=== PATIENT | female | born 1945 | race African-American/Black ===

== ENCOUNTER 2020-03-29 10:46 | Outpatient (CLI) | payer MEDICARE, OTHER, MEDICAID, SELFPAY ==
[2020-03-29 11:59] LABS: Basophils Absolute Auto 0.1 K/mm3 (0.0-0.1); Basophils Percent Auto 0.6 % (0.2-1.2); Eosinophils Absolute Auto 0.3 K/mm3 (0-0.3); Eosinophils Percent Auto 2.5 % (0-4.4); Hematocrit 37.1 % (37.0-47.0); Hemoglobin 12.3 g/dL (12.0-15.0); Immature Granulocyte Absolute 0.02 K/mm3 (0.00-0.031); Immature Granulocyte Percent A 0.2 % (0-0.5); Lymphocytes Absolute Auto 2.85 K/mm3 (0.9-3.2); Lymphocytes Percent Auto 27.5 % (18.3-44.2); Mean Corpuscular HGB Conc 33.2 g/dl (32-36); Mean Corpuscular Hemoglobin 29.9 pg (26-34); Mean Platelet Volume 11.4 fl (7.4-10.4); Monocytes Absolute Auto 0.6 K/mm3 (0.1-0.6); Monocytes Percent Auto 6.2 % (2.6-8.5); Neutrophils Absolute Auto 6.5 K/mm3 (1.3-6.7); Platelet Count Result 190 k/mm3 (150-375); Red Blood Count 4.12 M/mm3 (4.2-5.4); Red Cell Distribution Width 14.6 % (11.5-14.5); White Blood Count 10.4 K/mm3 (4.5-10.0)
[2020-03-29 12:11] LABS: Anion Gap 14.2 mmol/L (7-16); Blood Urea Nitrogen 32 mg/dL (7-17); Calcium 9.4 mg/dL (8.4-10.2); Carbon Dioxide 23 mmol/L (22-30); Chloride 103 mmol/L (98-107); Estimated Glomerular Filt Rate 53; Glucose 120 mg/dL (65-105); Potassium 4.2 mmol/L (3.4-5.0); Sodium 136 mmol/L (137-145)
[2020-03-29 12:47] LABS: Hemoglobin A1C 5.9 % (<5.7)
== END 2020-03-29 10:47 | disposition home or self-care (01) ==
PROVIDERS: PCP Internal Medicine
DX: I49.5 Sick sinus syndrome (principal); Z95.0 Presence of cardiac pacemaker; E78.00 Pure hypercholesterolemia, unspecified; I10 Essential (primary) hypertension; R94.31 Abnormal electrocardiogram [ECG] [EKG]; E11.9 Type 2 diabetes mellitus without complications
CPT/HCPCS: 36415; 80048; 83036; 84443; 85025

== ENCOUNTER 2020-04-20 08:10 | Outpatient (CLI) | payer MEDICARE, OTHER, MEDICAID, SELFPAY ==
[2020-04-20 09:15] LABS: Vitamin D 25 Hydroxy 38.2 ng/mL
== END 2020-04-20 08:11 | disposition home or self-care (01) ==
PROVIDERS: PCP Internal Medicine; Visit Provider Internal Medicine
DX: E55.9 Vitamin D deficiency, unspecified (principal)
CPT/HCPCS: 36415; 82306

== ENCOUNTER → 2020-05-21 10:42 | Outpatient (CLI) | payer MEDICARE, OTHER, MEDICAID, SELFPAY ==
--- NOTE | ~2020-05-21 | XR_ITS ---
XR knee RT 2V 05/21/2020 11:05 Indication: Right knee pain Procedure: 2 views right knee Comparison: No prior studies for comparison. Findings: There is mild osteoarthritis of the right knee. No fracture or traumatic malalignment. No s ignificant joint effusion. No radiopaque foreign bodies. Impression: 1: Mild osteoarthritis of the right knee. Reviewed, dictated and finalized at location B. Impression: 1: Mild osteoarthritis of the right knee.
== END ==
PROVIDERS: PCP Internal Medicine; Visit Provider Nurse Practitioner Family
DX: M25.561 Pain in right knee (principal); M17.11 Unilateral primary osteoarthritis, right knee
CPT/HCPCS: 73560

== ENCOUNTER → 2020-08-09 10:31 | Outpatient (CLI) | payer MEDICARE, OTHER, MEDICAID, SELFPAY ==
--- NOTE | ~2020-08-09 | XR_ITS ---
XR hand RT 2V 08/09/2020 10:50 INDICATION: Right hand pain PROCEDURE: 2 views right hand COMPARISON: No prior studies for comparison. FINDINGS: Fracture, dislocation or subluxation is not identified. Mild polyarticular osteoarthritis. No fracture or traumatic malalignment. No significant soft tissue abnormality. No foreign bodies. 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 Reviewed, dictated and finalized at location B. MA PROCESSOR
== END ==
PROVIDERS: Visit Provider Nurse Practitioner Family
DX: M19.041 Primary osteoarthritis, right hand (principal); M19.031 Primary osteoarthritis, right wrist
CPT/HCPCS: 73120

== ENCOUNTER → 2020-11-20 08:02 | Outpatient (CLI) | payer MEDICARE, OTHER, MEDICAID, SELFPAY ==
--- NOTE | ~2020-11-20 | CT_ITS ---
EXAMINATION: CT hand RT wo con DATE: 11/20/2020 08:38 INDICATION: Right hand pain TECHNIQUE: High resolution computed tomography (CT) of the right hand was performed without intraveno us contrast. Additional sagittal and coronal reconstructions were performed. Automated exposure contr ol and iterative reconstruction technique were employed. The dose-length product was 106.15 mGy-cm. COMPARISON: Right hand radiographs dated 08/09/2020 FINDINGS: Likely chronic scapholunate ligament tear with prominent widening of the scapholunate interval as wel l as dorsal intercalated segment instability (DISI) with increased scapholunate angle. Secondary scap holunate advanced collapse (SLAC) wrist with mild to moderate osteoarthritis at the radiocarpal artic ulation and mild osteoarthritis at the midcarpal joint. Additional moderate to severe osteoarthritis at the first carpometacarpal joint. Moderate osteoarthritis at the second distal interphalangeal join t and mild osteoarthritis at the distal radioulnar, triscaphe and many of the remaining metacarpophal angeal and interphalangeal joints. No periarticular erosions to suggest an inflammatory arthritis. Th ere is periarticular soft tissue swelling most prominent at the second metacarpophalangeal joint and to a lesser degree at the second-fourth proximal interphalangeal and second and third distal interpha langeal joints. IMPRESSION: 1. 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 2. Additional polyarticular osteoarthritis at the right hand, moderate to severe at the first carpome tacarpal joint, moderate at the second distal interphalangeal joint and otherwise mild. 3. Periarticular soft tissue swelling at the second metacarpophalangeal and a few interphalangeal lorelei nts. No associated erosions to more specifically suggest an inflammatory arthritis. Reviewed, dictated and finalized at location B. IMPRESSION: 1. 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 2. Additional polyarticular osteoarthritis at the right hand, moderate to sever e at the first carpometacarpal joint, moderate at the second distal interphalan geal joint and otherwise mild. 3. Periarticular soft tissue swelling at the second metacarpophalangeal and a f ew interphalangeal joints. No associated erosions to more specifically suggest an inflammatory arthritis.
== END ==
PROVIDERS: PCP Internal Medicine; Visit Provider Nurse Practitioner Family
DX: M79.641 Pain in right hand (principal); M19.041 Primary osteoarthritis, right hand
CPT/HCPCS: 73200

== ENCOUNTER 2023-05-17 10:24 | Emergency (ER) | payer MEDICARE, OTHER, MEDICAID, SELFPAY ==
[2023-05-17 10:59] VITALS: BP 178/92; PULSE 69; RESP 16; TEMP 36.8; O2SAT 100
--- NOTE | 2023-05-17 12:12 | ED.LOWEXIN ---
HPI - Extremity Injury (Lower) General Chief Complaint: Extremity Injury, Lower Stated Complaint: bilateral foot pain Time Seen by Provider: 05/17/23 12:08 Source: patient Mode of arrival: ambulatory Limitations: no limitations History of Present Illness HPI Narrative: 78 years old -[place] female came by private car from home with pain of feet bilaterally like needles, like tingling. 4 months. Was seen by her family physician, pain management physician and her [employer] systems. Patient currently on gabapentin, hydrocodone and morphine for pain management. Patient is diabetic. She denies any fever, chills, nausea, vomiting or recent trauma. Pain is constant, worse if she stands on her feet or if somebody touches it. Related Data Home Medications Medication Instructions Recorded Confirmed apixaban 5 mg tablet (Eliquis) 5 mg PO BID 04/04/20 07/10/22 morphine 15 mg tablet,extended 15 mg PO Q12H 12/13/20 07/10/22 release azelastine 137 mcg (0.1 %) nasal 137 mcg intranasal Q12H 06/25/21 07/10/22 spray aerosol felodipine 5 mg tablet,extended 5 mg PO DAILY 06/25/21 07/10/22 release 24 hr triamterene 37.5 1 tablet PO QAM 06/25/21 07/10/22 mg-hydrochlorothiazide 25 mg tablet Allergies Allergy/AdvReac Type Severity Reaction Status Date / Time [id number]-[id number] Reductase Allergy Unknown Unknown Verified 02/12/23 10:54 Inhibitor [Gumucnq-Nwp-Apw Reductase Inhibitor] Review of Systems Review of Systems: All systems reviewed & are unremarkable except as noted in HPI and below PMFSH Family History Family History Father Cerebrovascular accident Sibling Family history of malignant neoplasm Social History Social History Smoking status: Never smoker Second hand tobacco smoke exposure: No Alcohol intake: current Alcohol use details: Wine occasionally Substance use: never Substance use type: does not use Lack of Transportation: No Lack of Food: Never True Current Housing: I Do Not Have Housing Concerned About Future Housing: No Difficulty Paying Gas/Electric Bills: No Difficulty Paying for Meds: No Currently Unemployed: No Education: High School Diploma/GED Difficulty w/ Childcare or Family Care: No Exam Narrative: CONSTITUTIONAL: Denies fever, chills, or sweats. EYES: Denies visual changes, redness, or discharge. ENT: Denies rhinorrhea, congestion, sore throat, or otalgia. CARDIOVASCULAR: Denies chest pain, palpitations, or edema. RESPIRATORY: Denies cough or dyspnea. GASTROINTESTINAL: Denies abdominal pain, nausea, vomiting, or diarrhea. GENITOURINARY: Denies dysuria or hematuria. SKIN: Denies rash or itching. MUSCULOSKELETAL: Denies back pain, joint pain, or myalgia. NEUROLOGIC: Hypersensitivity of the feet up to the ankle bilaterally with light touch. No skin discoloration, no rash, no swelling, no deformity PSYCHIATRIC: Denies anxiety or depression. Course Vital Signs Vital signs: Vital Signs Temperature 36.8 C 05/17/23 10:59 Pulse Rate 69 05/17/23 10:59 Respiratory Rate 16 05/17/23 10:59 Blood Pressure 178/92 H 05/17/23 10:59 Pulse Oximetry 100 05/17/23 10:59 Temperature 36.8 C 05/17/23 10:59 Pulse Rate 69 05/17/23 10:59 Respiratory Rate 16 05/17/23 10:59 Blood Pressure 178/92 H 05/17/23 10:59 Pulse Oximetry 100 05/17/23 10:59 MDM - Extremity Injury (Lower) MDM Narrative Medical decision making narrative: Patient presents with feet pain bilaterally for months. History of diabetes. Was seen by her family physician, pain management physician and [employer]. Currently on gabapentin, hydrocodone and morphine. Physical examination showed severe sensitivity of the feet and ankle bilaterally to light touch. No other sign of infection or trauma or poor peripheral circulation Diabetic neuropathy is my concern.
[2023-05-17 12:50] VITALS: BP 168/100; PULSE 82; RESP 18; O2SAT 97
== END 2023-05-17 13:03 | disposition home or self-care (01) ==
PROVIDERS: Emergency Provider Emergency Medicine; PCP Family Medicine
DX: E11.42 Type 2 diabetes mellitus with diabetic polyneuropathy (principal); Z79.01 Long term (current) use of anticoagulants
CPT/HCPCS: 99281

== ENCOUNTER 2023-11-20 14:06 | Emergency (ER) | payer MEDICARE, OTHER, MEDICAID, SELFPAY ==
[2023-11-20] VITALS (7 sets, daily range): BP systolic 142–183; BP diastolic 89–101; PULSE 70–76; RESP 18–26; TEMP 36.2; O2SAT 97–100
--- NOTE | ~2023-11-20 | XR_ITS ---
EXAMINATION: XR foot LT min 3V DATE: 11/20/2023 15:12 INDICATION: Left foot pain and swelling TECHNIQUE: Dorsoplantar, two oblique and lateral views of the left foot were obtained. COMPARISON: None. FINDINGS: 15 degrees hallux valgus. Alignment is otherwise normal. No fracture. Mild osteoarthritis at the firs t metatarsophalangeal and a few tarsometatarsal and interphalangeal joints. Small retrocalcaneal spur . No cortical erosions. Diffuse soft tissue swelling at the dorsum of the foot and extending anterior to the ankle. IMPRESSION: 1. Hallux valgus and mild degenerative skeletal changes in the left foot. No erosions or acute osseou s abnormality. Reviewed, dictated and finalized at location B. IMPRESSION: 1. Hallux valgus and mild degenerative skeletal changes in the left foot. No er osions or acute osseous abnormality.
[2023-11-20 14:48] LABS: Basophils Absolute Auto 0.1 K/mm3 (0.0-0.1); Basophils Percent Auto 0.5 % (0.2-1.2); Eosinophils Absolute Auto 0.2 K/mm3 (0-0.3); Eosinophils Percent Auto 1.7 % (0-4.4); Hematocrit 40.3 % (37.0-47.0); Hemoglobin 13.1 g/dL (12.0-15.0); Immature Granulocyte Absolute 0.03 K/mm3 (0.00-0.031); Immature Granulocyte Percent A 0.3 % (0-0.5); Lymphocytes Absolute Auto 1.81 K/mm3 (0.9-3.2); Lymphocytes Percent Auto 17.9 % (18.3-44.2); Mean Corpuscular HGB Conc 32.5 g/dl (32-36); Mean Corpuscular Hemoglobin 30.1 pg (26-34); Mean Corpuscular Volume 92.6 fl (80-100); Mean Platelet Volume 12.2 fl (7.4-10.4); Monocytes Absolute Auto 0.8 K/mm3 (0.1-0.6); Monocytes Percent Auto 7.5 % (2.6-8.5); Neutrophils Absolute Auto 7.3 K/mm3 (1.3-6.7); Neutrophils Percent Auto 72.1 % (45.5-73.1); Platelet Count Result 150 k/mm3 (150-375); Red Blood Count 4.35 M/mm3 (4.2-5.4); Red Cell Distribution Width 15.4 % (11.5-14.5); White Blood Count 10.1 K/mm3 (4.5-10.0)
--- NOTE | 2023-11-20 14:48 | ED.LOWEXIN ---
HPI - Extremity Injury (Lower) General Chief Complaint: Extremity Problem,Nontraumatic <Quiana Anglin PA-C - Last Filed: 11/20/23 15:59> Stated Complaint: foot pain <Quiana Anglin PA-C - Last Filed: 11/20/23 15:59> Time Seen by Provider: 11/20/23 14:16 <MIYA Price Last Filed: 11/20/23 15:59> History of Present Illness HPI Narrative: 78-year-old female with a history of CKD dyslipidemia presents to emergency department for left foot pain x1 day. Patient is reporting pain and redness to the dorsum of her left foot. States she has never had this happen before. Denies recent injury or trauma, open wounds, fever, nausea vomiting, chest pain or shortness of breath. Denies history of gout. <Quiana Anglin PA-C - Last Filed: 11/20/23 15:59> Related Data Home Medications: Home Medications Medication Instructions Recorded Confirmed apixaban 5 mg tablet (Eliquis) 5 mg PO BID 04/04/20 07/10/22 morphine 15 mg tablet,extended 15 mg PO Q12H 12/13/20 07/10/22 release azelastine 137 mcg (0.1 %) nasal 137 mcg intranasal Q12H 06/25/21 07/10/22 spray aerosol valsartan 160 mg tablet 160 mg PO DAILY 11/03/23 <Quiana Anglin PA-C - Last Filed: 11/20/23 15:59> Allergies/Adverse Reactions: Allergies Allergy/AdvReac Type Severity Reaction Status Date / Time Ebzsekc-BZL-CeW Reductase Allergy Unknown Unknown Verified 11/03/23 13:56 Inhibitor [Rnywaqk-Uzm-Qut Reductase Inhibitor] <MIYA Price Last Filed: 11/20/23 15:59> Review of Systems Review of Systems: CONSTITUTIONAL: Denies fever, chills, or sweats. EYES: Denies visual changes, redness, or discharge. ENT: Denies rhinorrhea, congestion, sore throat, or otalgia. CARDIOVASCULAR: Denies chest pain, palpitations, or edema. RESPIRATORY: Denies cough or dyspnea. GASTROINTESTINAL: Denies abdominal pain, nausea, vomiting, or diarrhea. GENITOURINARY: Denies dysuria or hematuria. SKIN: See HPI MUSCULOSKELETAL: Denies back pain, joint pain, or myalgia. NEUROLOGIC: Denies headache, numbness, or weakness. PSYCHIATRIC: Denies anxiety or depression. <Quiana Anglin PA-C - Last Filed: 11/20/23 15:59> [facility] Family History Family History: Family History Father Cerebrovascular accident Sibling Family history of malignant neoplasm <Quiana Anglin PA-C - Last Filed: 11/20/23 15:59> Social History Social History: Social History Smoking status: Never smoker Second hand tobacco smoke exposure: No Alcohol intake: current Alcohol use details: Wine occasionally Substance use: never Substance use type: does not use Lack of Transportation: No Lack of Food: Never True Current Housing: I Do Not Have Housing Concerned About Future Housing: No Difficulty Paying Gas/Electric Bills: No Difficulty Paying for Meds: No Currently Unemployed: No Education: High School Diploma/GED Difficulty w/ Childcare or Family Care: No <Quiana Anglin PA-C - Last Filed: 11/20/23 15:59> Exam Narrative: GENERAL: Well-appearing, well-nourished, and in no acute distress. HEAD: Normocephalic, atraumatic. EYES: PERRLA and EOMI. ENT: Nares clear, no rhinorrhea or epistaxis. Mucous membranes moist. NECK: Supple. CHEST: Clear to auscultation. No respiratory distress. HEART: Regular rate and rhythm. No murmur heard. Normal peripheral pulses. ABDOMEN: Soft, nontender, nondistended, normal active bowel sounds. EXTREMITIES: Normal range of motion. No edema. SKIN: Blanching erythema and warmth to the dorsum of the left foot and surrounding the 1st MTP with 1+ pitting edema and tenderness to touch. No weeping, crepitus, ulcerations or wounds. Patient has full active and passive range of motion of ankle and toes. Cap refill less than 2. Sensation intact through
[2023-11-20 14:59] LABS: Lactic Acid Reflex 1.3 mmol/L (0.7-2.0)
[2023-11-20 15:01] LABS: Alanine Aminotransferase 24 U/L (6-35); Albumin Level 4.2 g/dL (3.5-5.1); Alkaline Phosphatase 88 U/L (38-126); Anion Gap 6 mmol/L (8-16); Aspartate Amino Transferase 30 U/L (14-36); Bilirubin,Total 1.5 mg/dL (0.2-1.3); Blood Urea Nitrogen 27 mg/dL (7-17); CRP 0.7 mg/dL (<1.0); Calcium 9.1 mg/dL (8.4-10.2); Carbon Dioxide 26 mmol/L (22-30); Chloride 107 mmol/L (98-107); Estimated CRCL calculation 39 ml/min; Estimated Glomerular Filt Rate 58; Glucose 90 mg/dL (65-110); Potassium 3.3 mmol/L (3.4-5.0); Sodium 139 mmol/L (137-145); Uric Acid 8.5 mg/dL (2.5-7.5)
[2023-11-20] MEDS: POTASSIUM CHLORIDE 20 MEQ PACKET (FOR LIQUID) PO (15:31)
[2023-11-20] MEDS: ACETAMINOPHEN 500 MG TABLET 1000 MG PO (15:31)
[2023-11-20 15:41] LABS: Magnesium 1.9 mg/dL (1.6-2.3)
[2023-11-20 15:53] LABS: Erythrocyte Sedimentation Rate 25 mm/hr (0-20)
[2023-11-20] MEDS: predniSONE 20 MG TABLET 40 MG PO (16:24)
[2023-11-20] MEDS: CEPHALEXIN 500 MG CAPSULE PO (16:24)
== END 2023-11-20 16:55 | disposition home or self-care (01) ==
PROVIDERS: Emergency Provider Physician Assistant; PCP Family Medicine
DX: L03.116 Cellulitis of left lower limb (principal); N18.9 Chronic kidney disease, unspecified; E78.5 Hyperlipidemia, unspecified; M20.12 Hallux valgus (acquired), left foot
CPT/HCPCS: 36415; 73630; 80053; 83605; 83735; 84550; 85025; 85652; 86140; 99283; A9270; J7512